=== PATIENT | female | born 1995 | race Caucasian/White ===

== ENCOUNTER 2023-02-19 12:23 | Emergency (ER) | payer OTHER, SELFPAY ==
--- NOTE | ~2023-02-19 | XR_ITS ---
EXAMINATION: XR chest 2V DATE: 02/19/2023 13:15 INDICATION: Cough and congestion. TECHNIQUE: Frontal and lateral views of the chest were obtained. COMPARISON: None. FINDINGS: The chest demonstrates clear lungs without pneumonia, pleural effusion, or pneumothorax. Th e heart size is normal. IMPRESSION: 1. No acute cardiopulmonary disease. Reviewed, dictated and finalized at location A.
[2023-02-19 12:41] VITALS: BP 130/90; PULSE 79; RESP 18; TEMP 36.2; O2SAT 100
--- NOTE | 2023-02-19 13:08 | ED.URI ---
HPI - URI/Sore Throat General Chief Complaint: Upper Respiratory Infection Stated Complaint: cough,congestion,back pain when breathing Time Seen by Provider: 02/19/23 12:26 Source: patient Mode of arrival: ambulatory Limitations: no limitations History of Present Illness HPI Narrative: 27-year-old female presents to [facility] with complaints of cold-like symptoms of cough, congestion, runny nose, body aches and chills. Patient reports that this morning she started with low-grade fevers up to 99 and also noted pain to her back with inspiration and coughing. Patient reports history of bronchitis and pneumonia as a child. Patient is a nonsmoker. Patient reports that her children were recently ill with cold-like symptoms. Patient denies recent travel. Patient denies nausea, vomiting, diarrhea, shortness of breath or wheezing. Patient has been taking [id number] ibuprofen, Excedrin as well as completing stretching exercises to her back with minimal relief MD elicited complaint: cough, rhinorrhea and nasal congestion Onset (ago): day(s) (4) Able to tolerate fluids by mouth: Yes Relieving factors: nothing Context: sick contacts Associated symptoms: fever and chills Treatments prior to arrival: ibuprofen Related Data Allergies Allergy/AdvReac Type Severity Reaction Status Date / Time No Known Allergies Allergy Verified 02/19/23 12:42 Review of Systems Constitutional: Constitutional: Reports chills, Denies fatigue, Reports fever(s) and Denies weakness ENT: Denies vertigo, Denies dizziness, Denies epistaxis, Reports nasal congestion and Denies sore throat Comments: Rhinorrhea Cardiovascular: Cardiovascular: Denies chest pain Respiratory: Respiratory: Denies chest congestion, Reports cough, Denies dyspnea and Denies wheezing Comments: Pain in back with coughing Gastrointestinal: Gastrointestinal: Denies diarrhea, Denies nausea and Denies vomiting Integumentary/Breasts: Skin/Breast: Denies rash Neurologic: Denies dizziness, Denies syncope and Denies headache(s) PMFSH Social History Social History (Updated 02/19/23 @ 13:12 by Silke Smith APRN) Smoking status: Never smoker Comments At time of signature, I agree with nursing past medical, surgical, social and family history. There is no relevant family history pertinent to the presenting complaint. Exam Const: General: healthy appearing and no acute distress Nutritional Appearance: well nourished Orientation/consciousness: patient oriented x3 Limitations: no limitations HENMT: Head: normal to inspection Ears: external ears normal, TM's normal bilaterally and EAC's normal Face/Nose/Sinus: Normal external nose present and Nasal discharge present clear bilateral Mouth: Yes Normal oral and palatal mucosa present and Yes moist mucous membranes Teeth and gingiva: dentition normal Throat: posterior oropharynx normal and uvula midline Other: Moderate nasal congestion noted, right is worse than left Eyes: Conjunctivae: conjunctivae normal Neck: Neck: normal visual inspection Resp: Effort & Inspection: normal respiratory effort and not labored Auscultation: clear to auscultation bilaterally, no crackles, no rales, no rhonchi and no wheezes Cardio: Rate: regular rate Rhythm: regular rhythm Heart sounds: no murmurs Skin: General skin exam: normal color Neuro: General: patient oriented x3 Psych: Affect: normal affect Attitude: cooperative Course Course Level of Care: Express Care Visit Vital Signs Vital signs: Vital Signs Temperature 36.2 C L 02/19/23 12:41 Pulse Rate 79 02/19/23 12:41 Respiratory Rate 18 02/19/23 12:41 Blood Pressure 130/90 02/19/23 12:41 Pulse Oximetry 100 02/19/23 12:41 Oxygen Delivery Room Air 02/19/23 12:41 Temperature 36.2 C L 02/19/23 12:41 Pulse Rate 79 02/19/23 12:41 Respiratory Rate 18 02/19/23 12:41 Blood Pressure 130/90 02/19/23 12:41 Pulse Oximetry 100 06/0
== END 2023-02-19 13:28 | disposition home or self-care (01) ==
PROVIDERS: Emergency Provider Nurse Practitioner Family
DX: J06.9 Acute upper respiratory infection, unspecified (principal); Z20.822 Contact with and (suspected) exposure to COVID-19
CPT/HCPCS: 71046; 87426; 87804; 99203; C9803; G0463

== ENCOUNTER 2023-03-25 09:49 | Emergency (ER) | payer OTHER, SELFPAY ==
--- NOTE | 2023-03-25 09:52 | ED.GENADULT ---
HPI - General Adult General Chief complaint: Ear Stated complaint: rt ear pain Time Seen by Provider: 03/25/23 09:52 Source: patient Mode of arrival: ambulatory Limitations: no limitations History of Present Illness HPI narrative: 28-year-old female patient presents to the [facility] with complaints of right ear pain for the past 5 days. Patient states symptoms started off as a cold/ virus. Patient states most of her symptoms have been resolved but continues to have slight ear pain that comes and goes and is triggering her migraines. Patient states she has taken some ibuprofen for the pain but denies being on any type of antihistamine or using the nasal spray. Denies any fevers, body aches or chills. Denies any nausea, vomiting or diarrhea. Denies any discharge coming from the ear. Related Data Allergies Allergy/AdvReac Type Severity Reaction Status Date / Time No Known Allergies Allergy Verified 03/25/23 10:07 Review of Systems Review of Systems: CONSTITUTIONAL: Denies fever, chills, or sweats. EYES: Denies visual changes, redness, or discharge. ENT: Denies rhinorrhea, congestion, sore throat, or otalgia. CARDIOVASCULAR: Denies chest pain, palpitations, or edema. RESPIRATORY: Denies cough or dyspnea. GASTROINTESTINAL: Denies abdominal pain, nausea, vomiting, or diarrhea. GENITOURINARY: Denies dysuria or hematuria. SKIN: Denies rash or itching. MUSCULOSKELETAL: Denies back pain, joint pain, or myalgia. NEUROLOGIC: Denies headache, numbness, or weakness. PSYCHIATRIC: Denies anxiety or depression. PMFSH Social History Social History Smoking status: Never smoker Comments At the time of my signature I agree with nursing past medical history, surgical, social, and family history. There is no relevant family history pertinent to the presenting complaint. Exam Narrative: GENERAL: Well-appearing, well-nourished, and in no acute distress. HEAD: Normocephalic, atraumatic. EYES: PERRLA and EOMI. ENT: Nares clear, no rhinorrhea or epistaxis. Mucous membranes moist. The right tympanic membrane does appear to have some fluid behind there. There is no erythema no bulging no evidence of infection at this time. Posterior pharynx with no erythema, tonsillar enlargement, or exudates present NECK: Supple. No lymphadenopathy CHEST: Clear to auscultation. No respiratory distress. HEART: Regular rate and rhythm. No murmur heard. Normal peripheral pulses. ABDOMEN: Soft, nontender, nondistended, normal active bowel sounds. EXTREMITIES: Normal range of motion. No edema. SKIN: Warm, dry, no rash. NEURO: No focal deficits. Alert and oriented x3. Course Course Level of Care: Express Care Visit Vital Signs Vital signs: Vital Signs Temperature 36.7 C 03/25/23 10:06 Pulse Rate 72 03/25/23 10:06 Respiratory Rate 18 03/25/23 10:06 Blood Pressure 131/82 03/25/23 10:06 Pulse Oximetry 100 03/25/23 10:06 Oxygen Delivery Room Air 03/25/23 10:06 Temperature 36.7 C 03/25/23 10:06 Pulse Rate 72 03/25/23 10:06 Respiratory Rate 18 03/25/23 10:06 Blood Pressure 131/82 03/25/23 10:06 Pulse Oximetry 100 03/25/23 10:06 Oxygen Delivery Room Air 03/25/23 10:06 Vital signs reviewed. Medical Decision Making MDM Narrative Medical decision making narrative: discussed with patient does appear that she has got some fluid behind the eardrum that could be causing some of the intermittent pain. We will discharge her home with an antihistamine, nasal steroid and did give instructions on how to properly use the nasal steroid as well as an oral steroid to help dry up the fluted per hopefully prevent infection. Discussed with patient if the symptoms worsen she develops fever she will need to be reassessed for possible antibiotics. Patient verbalized understanding denies any other questions or concerns at this time. Differential Diagnosis Diff
[2023-03-25 10:06] VITALS: BP 131/82; PULSE 72; RESP 18; TEMP 36.7; O2SAT 100
== END 2023-03-25 10:32 | disposition home or self-care (01) ==
PROVIDERS: Emergency Provider Nurse Practitioner Family
DX: H65.01 Acute serous otitis media, right ear (principal)
CPT/HCPCS: 99213; G0463

== ENCOUNTER 2023-07-18 10:26 | Emergency (ER) | payer OTHER, SELFPAY ==
--- NOTE | 2023-07-18 11:02 | ED.URI ---
HPI - URI/Sore Throat General Chief Complaint: Upper Respiratory Infection Stated Complaint: sorethoart Time Seen by Provider: 07/18/23 11:03 Source: patient Mode of arrival: ambulatory Limitations: no limitations History of Present Illness HPI Narrative: Patient is a 28-year-old female who presents with sore throat. Patient reports symptoms started on Sunday and was seen in the emergency department on Sunday. Patient was diagnosed with strep throat and put on amoxicillin. Patient states symptoms improved slightly but now have worsening pain and throat swelling. Patient states she has had frequent strep throat in the past with resistance to amoxicillin. Patient is currently on day 4 of amoxicillin. Denies any fever, chills, nausea, vomiting, diarrhea. Related Data Home Medications Medication Instructions Recorded Confirmed amoxicillin 500 mg capsule mg 07/18/23 escitalopram oxalate 10 mg tablet mg 07/18/23 ondansetron 4 mg disintegrating mg 07/18/23 tablet prednisone 10 mg tablet mg 07/18/23 07/18/23 propranolol 40 mg tablet mg 07/18/23 sumatriptan succinate 50 mg tablet mg PO 07/18/23 trazodone 50 mg tablet mg 07/18/23 Allergies Allergy/AdvReac Type Severity Reaction Status Date / Time No Known Allergies Allergy Verified 03/25/23 10:07 Review of Systems Review of Systems: All systems reviewed & are unremarkable except as noted in HPI and below Constitutional: Constitutional: Denies body ache(s), Denies fever(s), Denies headache(s), Denies malaise and Denies weakness Eyes: Eyes: Denies loss of vision ENT: Denies otalgia, Denies headache(s), Denies nasal congestion, Denies sinus pain and Reports sore throat Cardiovascular: Cardiovascular: Denies chest pain, Denies irregular heart rhythm and Denies dyspnea Respiratory: Respiratory: Denies cough and Denies dyspnea Gastrointestinal: Gastrointestinal: Denies abdominal pain, Denies melena, Denies hematochezia, Denies diarrhea, Denies nausea and Denies vomiting Musculoskeletal: Musculoskeletal: Denies back pain, Denies myalgias and Denies arthralgias Integumentary/Breasts: Skin/Breast: Denies pruritus and Denies rash Neurologic: Denies headache(s), Denies loss of vision and Denies weakness Psychiatric: Psychiatric: Reports no additional psychiatric complaints PMFSH Social History Social History Smoking status: Never smoker Comments At time of signature, agree with nursing past medical, surgical, social and family history. There is no relevant family history pertinent to the presenting complaint. Exam Const: General: cooperative, healthy appearing, comfortable, no acute distress and well nourished Nutritional Appearance: well nourished Orientation/consciousness: patient oriented x3 Limitations: no limitations HENMT: Head: normal to inspection, normocephalic and atraumatic Ears: hearing grossly normal bilaterally, external ears normal, TM's normal bilaterally and EAC's normal Face/Nose/Sinus: Normal external nose present, Normal nares present, Normal nasal mucous membranes and turbinates present, Normal septum present, normal facial exam, sinuses nontender and face symmetric Face and sinus: normal facial exam, sinuses nontender and face symmetric Mouth: Yes Normal oral and palatal mucosa present, Yes lip normal and Yes moist mucous membranes Teeth and gingiva: dentition normal Throat: uvula midline, abnormal tonsil bilateral erythema, exudates and hypertrophy 3+, posterior oropharynx abnormal edema, erythema and exudates and postnasal drainage Eyes: General: appearance normal, both eyes and all related structures Alignment and Position: alignment normal and position normal Periorbital: periorbital findings normal Eyelids: eyelids normal Pupils: Equal, round and reactive pupils present Neck: Neck: normal visual inspection, full ROM, no lymphadenopathy and supple Chest: Chest palpatio
[2023-07-18 11:07] VITALS: BP 131/83; PULSE 85; RESP 18; TEMP 36.1; O2SAT 99
[2023-07-18 11:14] VITALS: BP 131/83; PULSE 85; RESP 18; TEMP 36.1; O2SAT 99
== END 2023-07-18 11:55 | disposition home or self-care (01) ==
PROVIDERS: Emergency Provider Nurse Practitioner Family
DX: J02.0 Streptococcal pharyngitis (principal)
CPT/HCPCS: 99213; G0463

== ENCOUNTER 2023-08-24 08:15 | Emergency (ER) | payer OTHER, SELFPAY ==
[2023-08-24 08:30] VITALS: BP 145/85; PULSE 76; RESP 16; TEMP 36.3; O2SAT 100
--- NOTE | 2023-08-24 08:53 | ED.URI ---
HPI - URI/Sore Throat General Chief Complaint: Upper Respiratory Infection Stated Complaint: Sore Throat Time Seen by Provider: 08/24/23 08:48 Source: patient and RN notes reviewed Mode of arrival: ambulatory Limitations: no limitations History of Present Illness HPI Narrative: Patient presents today with a 6 day history of sore throat, fatigue, nasal congestion. Denies fever, cough, rhinorrhea. Currently rates her pain 7/10 and has been taking ibuprofen with mild relief. Related Data Home Medications Medication Instructions Recorded Confirmed escitalopram oxalate 10 mg tablet mg 07/18/23 propranolol 40 mg tablet mg 07/18/23 sumatriptan succinate 50 mg tablet mg PO 07/18/23 trazodone 50 mg tablet mg 07/18/23 Allergies Allergy/AdvReac Type Severity Reaction Status Date / Time No Known Allergies Allergy Verified 08/24/23 08:29 Review of Systems Review of Systems: CONSTITUTIONAL: Denies body aches, fever, chills, or sweats.+ fatigue EYES: Denies visual changes, redness, or discharge. ENT: Denies rhinorrhea, otalgia.+ sore throat, congestion CARDIOVASCULAR: Denies chest pain, palpitations, or edema. RESPIRATORY: Denies cough or dyspnea. GASTROINTESTINAL: Denies abdominal pain, nausea, vomiting, or diarrhea. GENITOURINARY: Denies dysuria or hematuria. SKIN: Denies rash, itching, or wounds. MUSCULOSKELETAL: Denies back pain, joint pain, or myalgia. NEUROLOGIC: Denies headache, numbness, tingling, or weakness. PSYCH: Denies depression or anxiety. [facility] Social History Social History Smoking status: Never smoker Comments At time of signature, I have reviewed and agree with nursing past medical, surgical, social and family history unless otherwise noted. Please see nursing chart for further information. There is no relevant family history pertinent to the presenting complaint Exam Narrative: GENERAL: Well-appearing, well-nourished, and in no acute distress. HEAD: Normocephalic, atraumatic. EYES: EOMI. No redness or drainage. Conjunctivae normal. ENT: Mucous membranes pink and moist. Nares clear. No rhinorrhea. TMs normal bilaterally. Throat normal. Uvula midline. NECK: Normal AROM. Supple. No lymphadenopathy. CHEST: No respiratory distress. Clear to auscultation. HEART: Regular rate and rhythm. No murmur appreciated. EXTREMITIES: Normal range of motion. No edema. SKIN: Warm, dry, no rash. Capillary refill normal. Normal skin turgor. NEURO: No focal deficits. Alert and oriented x3. Gait steady. PSYCH: Normal affect. No signs of depression or anxiety. Course Course Level of Care: Express Care Visit Vital Signs Vital signs: Vital Signs Temperature 97.4 F L 08/24/23 08:30 Pulse Rate 76 08/24/23 08:30 Respiratory Rate 16 08/24/23 08:30 Blood Pressure 145/85 H 08/24/23 08:30 Pulse Oximetry 100 08/24/23 08:30 Oxygen Delivery Room Air 08/24/23 08:30 Temperature 97.4 F L 08/24/23 08:30 Pulse Rate 76 08/24/23 08:30 Respiratory Rate 16 08/24/23 08:30 Blood Pressure 145/85 H 08/24/23 08:30 Pulse Oximetry 100 08/24/23 08:30 Oxygen Delivery Room Air 08/24/23 08:30 Reviewed MDM - URI/Sore Throat MDM Narrative Medical decision making narrative: Rapid strep negative. Culture pending. Symptoms likely viral in etiology. Discussed [id number] treatment. Anticipatory guidance given. Differential Diagnosis Differential diagnosis: Likely upper respiratory infection, otitis media, viral infection, pharyngitis and other (Strep throat) Lab Data Attestation: I reviewed the patient's lab results. Labs: Strep Screen Presumptive Negative *(Reference Range: Negative)* Critical Care Time Critical Care Time Critical Care Time: No Discharge Plan Discharge Clinical Impression: Upper respiratory infection Qualifiers: URI ty
== END 2023-08-24 09:05 | disposition home or self-care (01) ==
PROVIDERS: Emergency Provider Nurse Practitioner
DX: J06.9 Acute upper respiratory infection, unspecified (principal)
CPT/HCPCS: 87081; 87880; 99213; G0463

== ENCOUNTER 2023-09-02 09:31 | Emergency (ER) | payer OTHER, SELFPAY ==
[2023-09-02 10:16] VITALS: BP 127/90; PULSE 77; RESP 18; TEMP 35.9; O2SAT 98
--- NOTE | 2023-09-02 10:59 | ED.URI ---
HPI - URI/Sore Throat General Chief Complaint: Upper Respiratory Infection Stated Complaint: Sore Throat/Chills Source: patient Mode of arrival: ambulatory Limitations: no limitations History of Present Illness HPI Narrative: 28-year-old female presents to [facility] with complaints of chills, fatigue, sinus pressure, sore throat, nasal congestion, bilateral ear pressure, right is worse than left for the past 7-10 days. Patient reports her symptoms became worse a few days ago. 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 Patient takes Zyrtec and Flonase daily. Patient has been taking [id number] DayQuil and Motrin with little relief. Patient denies recent travel. Patient is nonsmoker. Patient reports that she completed a negative COVID test yesterday. MD elicited complaint: rhinorrhea, nasal congestion and sinus pain Onset (ago): day(s) (-) Able to tolerate fluids by mouth: Yes Treatments prior to arrival: acetaminophen, ibuprofen and cold medicine Related Data Home Medications Medication Instructions Recorded Confirmed escitalopram oxalate 10 mg tablet 10 mg PO DAILY 07/18/23 09/02/23 propranolol 40 mg tablet 40 mg PO DAILY 07/18/23 09/02/23 sumatriptan succinate 50 mg tablet 50 mg PO DAILY 07/18/23 09/02/23 trazodone 50 mg tablet 50 mg PO HS 07/18/23 09/02/23 Allergies Allergy/AdvReac Type Severity Reaction Status Date / Time No Known Allergies Allergy Verified 09/02/23 10:33 Review of Systems Constitutional: Constitutional: Reports chills, Reports fatigue, Denies fever(s) and Denies weakness ENT: Denies dizziness, Denies epistaxis, Reports nasal congestion and Denies sore throat Cardiovascular: Cardiovascular: Denies chest pain Respiratory: Respiratory: Reports cough, Denies dyspnea and Denies wheezing Gastrointestinal: Gastrointestinal: Denies abdominal pain, Denies diarrhea, Denies nausea and Denies vomiting Musculoskeletal: Musculoskeletal: Denies arthralgias and Denies joint swelling Integumentary/Breasts: Skin/Breast: Denies rash Neurologic: Denies dizziness, Denies syncope and Denies headache(s) [facility] Social History Social History Smoking status: Never smoker Comments At time of signature, I agree with nursing past medical, surgical, social and family history. There is no relevant family history pertinent to the presenting complaint. Exam Const: General: healthy appearing and no acute distress Nutritional Appearance: well nourished Orientation/consciousness: patient oriented x3 Limitations: no limitations HENMT: Head: normal to inspection Ears: external ears normal, TM's normal bilaterally and EAC's normal Face/Nose/Sinus: Normal external nose present Face and sinus: sinus tenderness frontal Mouth: Yes Normal oral and palatal mucosa present and Yes moist mucous membranes Throat: posterior oropharynx normal and uvula midline Other: Moderate bilateral nasal congestion no Eyes: Conjunctivae: conjunctivae normal Resp: Effort & Inspection: normal respiratory effort and not labored Auscultation: clear to auscultation bilaterally, no crackles, no rales, no rhonchi and no wheezes Cardio: Rate: regular rate Rhythm: regular rhythm Heart sounds: no murmurs Skin: General skin exam: normal color Rashes: no rashes Psych: Affect: normal affect Attitude: cooperative Course Course Level of Care: Express Care Visit Vital Signs Vital signs: Vital Signs Temperature 35.9 C L 09/02/23 10:16 Pulse Rate 77 09/02/23 10:16 Respiratory Rate 18 09/02/23 10:16 Blood Pressure 127/90 09/02/23 10:16 Pulse Oximetry 98 09/02/23 10:16 Oxygen Delivery Room Air 09/02/23 10:16 Temperature 35.9 C L 09/02/23 10:16 Pulse Rate 77 09/02/23 10:16 Respiratory Rate 18 09/02/23 10:16 Blood Pressure 127/90 09/02/23 10:16 Pulse Oximetry 98 09/02/23 10:16 Oxygen Delivery Room Air 09/02/23
== END 2023-09-02 11:07 | disposition home or self-care (01) ==
PROVIDERS: Emergency Provider Nurse Practitioner Family
DX: J01.80 Other acute sinusitis (principal); F41.9 Anxiety disorder, unspecified; F32.A Depression, unspecified
CPT/HCPCS: 87081; 87804; 87880; 99213; G0463

== ENCOUNTER 2024-05-06 16:54 | Emergency (ER) | payer OTHER, SELFPAY ==
--- NOTE | 2024-05-06 17:00 | ED.URI ---
HPI - URI/Sore Throat General Chief Complaint: Upper Respiratory Infection Stated Complaint: cold/ Sinus infection Time Seen by Provider: 05/06/24 17:19 Source: patient and RN notes reviewed Mode of arrival: ambulatory Limitations: no limitations History of Present Illness HPI Narrative: 29-year-old female presents with concern for 2 week history of sinus congestion, sinus pain or pressure, sinus drainage. She reports she has taken antihistamines and Tylenol and ibuprofen without relief. She reports worsening symptoms the last 2 days. MD elicited complaint: nasal congestion and sinus pain Related Data Home Medications Medication Instructions Recorded Confirmed escitalopram oxalate 10 mg tablet 10 mg PO DAILY 07/18/23 09/02/23 propranolol 40 mg tablet 40 mg PO DAILY 07/18/23 09/02/23 sumatriptan succinate 50 mg tablet 50 mg PO DAILY 07/18/23 09/02/23 trazodone 50 mg tablet 50 mg PO HS 07/18/23 09/02/23 Allergies Allergy/AdvReac Type Severity Reaction Status Date / Time No Known Allergies Allergy Verified 09/02/23 10:33 Review of Systems Review of Systems: CONSTITUTIONAL: Denies malaise, chills, sweats, or fever. EYES: Denies visual changes, redness, or discharge. ENT: Reports rhinorrhea, congestion, sinus pain CARDIOVASCULAR: Denies chest pain, palpitations, or edema. RESPIRATORY: Denies cough. Denies dyspnea. GASTROINTESTINAL: Denies abdominal pain, nausea, vomiting, diarrhea SKIN: Denies rash or itching. MUSCULOSKELETAL: Denies myalgia. NEUROLOGIC: Denies headache. All systems reviewed & are unremarkable except as noted in HPI and below PMFSH Social History Social History Smoking status: Never smoker Comments At time of signature, agree with nursing past medical, surgical, social and family history. There is no relevant family history pertinent to the presenting complaint Exam Narrative: GENERAL: Well-appearing, well-nourished, and in no acute distress. HEAD: Normocephalic EYES: PERRLA, conjunctivae clear ENT: Nares clear, turbinates edematous and erythematous. Mucous membranes moist. TM pearly jovel with dull light reflex bilaterally; no tragal tenderness. Oropharynx not erythematous without lesions. Tonsils not enlarged and without exudate, no drooling, no hoarseness, no trismus, uvula midline. NECK: Supple. No lymphadenopathy CHEST: Clear to auscultation, breath sounds equal. No wheezing, rhonchi, rales, or stridor. No respiratory distress, speaks in full sentences. HEART: Regular rate and rhythm. No murmur heard. SKIN: Warm, dry, no rash. NEURO: Alert and oriented x3. PSYCH: Normal mood and affect Course Course Emergency Course: Patient is aware of diagnosis, understands and agrees to treatment plan. Anticipatory guidance given. Patient agrees to follow-up as directed and is aware of reasons to seek care at the emergency department. Portions of this record may have been created with voice recognition software Level of Care: Express Care Visit Vital Signs Vital signs: Reviewed. MDM - URI/Sore Throat MDM Narrative Medical decision making narrative: Differential diagnosis considered: Castellanos virus, strep pharyngitis, allergic rhinitis, upper respiratory tract infection, sinusitis, rhinosinusitis, nasopharyngitis. viral pharyngitis, otitis media, otitis externa, pneumonia, bronchitis, viral cough syndrome, viral syndrome, and influenza. Exam findings show no acute concerns or changes; patient is non-toxic appearing and is in no distress. Patient is appropriate for outpatient treatment and follow-up. Lab Data Attestation: I reviewed the patient's lab results. Critical Care Time Critical Care Time Critical Care Time: No Discharge Plan Discharge Clinical Impression: Acute bacterial sinusitis Patient Disposition: Home, Self-Care Condition: Stable Instructions: Antibiotic Form, Sinusitis (ED) Additional Instructions: T
[2024-05-06 17:10] VITALS: BP 125/71; PULSE 77; RESP 18; TEMP 36.2; O2SAT 99
== END 2024-05-06 17:30 | disposition home or self-care (01) ==
PROVIDERS: Emergency Provider Nurse Practitioner
DX: J01.90 Acute sinusitis, unspecified (principal); F41.9 Anxiety disorder, unspecified; F32.A Depression, unspecified
CPT/HCPCS: 99213; G0463

== ENCOUNTER 2024-06-04 11:36 | Emergency (ER) | payer OTHER, SELFPAY ==
[2024-06-04 11:38] VITALS: BP 139/83; PULSE 83; RESP 19; TEMP 36.6; O2SAT 99
[2024-06-04 12:15] LABS: EDSTREPNEGPOS1 Negative (Negative)
--- NOTE | 2024-06-04 12:45 | ED.GENADULT ---
HPI - General Adult General Chief complaint: Upper Respiratory Infection Stated complaint: Sore Throat Source: patient Mode of arrival: ambulatory Limitations: no limitations History of Present Illness HPI narrative: Patient presents for evaluation of sore throat for past few days. She has associated fatigue, mild right sided otalgia and chills. No fever, nausea, vomiting, diarrhea, cough or SOB. She has been taking tylenol and ibuprofen for her symptoms. She does not smoke. She has had mono in the past but cannot remember if her symptoms in the past with mono are similar to current symptoms. Several family members have had similar symptoms. Related Data Home Medications Medication Instructions Recorded Confirmed escitalopram oxalate 10 mg tablet 10 mg PO DAILY 07/18/23 06/04/24 sumatriptan succinate 50 mg tablet 50 mg PO DAILY 07/18/23 06/04/24 propranolol 40 mg tablet 40 mg PO DAILY 05/06/24 06/04/24 rimegepant 75 mg disintegrating 75 mg PO PRN PRN migraines 05/06/24 06/04/24 tablet (Nurtec ODT) Allergies Allergy/AdvReac Type Severity Reaction Status Date / Time No Known Allergies Allergy Verified 06/04/24 11:41 Review of Systems Review of Systems: CONSTITUTIONAL: Reports fatigue and chills. Denies fever and chills EYES: Denies visual changes, redness, or discharge. ENT: Reports sore throat and right sided otalgia. Denies rhinorrhea and congestion CARDIOVASCULAR: Denies chest pain, palpitations, or edema. RESPIRATORY: Denies cough or dyspnea. GASTROINTESTINAL: Denies abdominal pain, nausea, vomiting, or diarrhea. GENITOURINARY: Denies dysuria or hematuria. SKIN: Denies rash or itching. MUSCULOSKELETAL: Denies back pain, joint pain, or myalgia. NEUROLOGIC: Denies headache, numbness, dizziness, or weakness. PSYCHIATRIC: Denies anxiety or depression. [facility] Past Medical History Medical History Anxiety Surgical History Surgical History No pertinent past surgical history Family History Family History Mother Family history non-contributory Social History Social History (Reviewed 06/04/24 @ 12:49 by Hill Cornejo, [facility], ) Smoking status: Never smoker Living arrangements: with family Gender identity (if verbalized by the patient): Female Exam Narrative: GENERAL: Well-appearing, well-nourished, and in no acute distress. HEAD: Normocephalic, atraumatic. EYES: PERRLA and EOMI. ENT: Nares clear, no rhinorrhea or epistaxis. Mucous membranes moist. bilateral tonsillar swelling without exudate. Uvula is midline. Mild erythema in posterior pharynx. Bilateral TMs pearly jovel nonbulging NECK: Supple. No adenopathy or masses. No carotid bruits or JVD CHEST: Clear to auscultation. No respiratory distress. No wheezes rales or rhonchi HEART: Regular rate and rhythm. No murmur heard. Normal peripheral pulses. ABDOMEN: Soft, nontender, nondistended, normal active bowel sounds. EXTREMITIES: Normal range of motion. No edema. SKIN: Warm, dry, no rash. NEURO: No focal deficits. Alert and oriented x3. PSYCH: Normal mood and affect. Course Course Emergency Course: This is a 29-year-old female who presented for evaluation of a sore throat. Strep and mono negative. Will send throat culture. Through shared decision opted to hold off on abx while culture pending. Increase hydration. [id number] agents for symptom management. Follow up with primary provider. Go to the ER for worsening symptoms. Pt in agreement with plan of care Level of Care: Express Care Visit Vital Signs Vital signs: Vital Signs Temperature 36.6 C 06/04/24 11:38 Pulse Rate 83 06/04/24 11:38 Respiratory Rate 19 06/04/24 11:38 Blood Pressure 139/83 06/04/24 11:38 Pulse Oximetry 99 06/04/24 11:38 Oxygen Delivery Room
[2024-06-04 12:59] LABS: EDMONONEGPOS Negative (Negative)
== END 2024-06-04 13:10 | disposition home or self-care (01) ==
PROVIDERS: Emergency Provider Nurse Practitioner
DX: J02.9 Acute pharyngitis, unspecified (principal); F41.9 Anxiety disorder, unspecified
CPT/HCPCS: 36416; 86308; 87081; 87880; 99213; G0463

== ENCOUNTER 2024-07-09 08:18 | Emergency (ER) | payer OTHER, SELFPAY ==
[2024-07-09 08:47] VITALS: BP 120/76; PULSE 88; RESP 16; TEMP 36.6; O2SAT 99
[2024-07-09 08:48] LABS: EDUAAPPEAR Clear; EDUABILI Negative (Negative); EDUABLOOD 3+ (Negative); EDUACOLOR1 Yellow; EDUAGLUCOSE Negative (Negative); EDUAKETONE Negative (Negative); EDUALEUKO 1+ (Negative); EDUANITRATE Negative (Negative); EDUAPH 5.5; EDUAPROTEIN 1+ (Negative); EDUASPGRAVITY 1.025; EDUAUROBILI 0.2
--- NOTE | 2024-07-09 09:06 | ED.FEMALEGU ---
HPI - Female Genitourinary General Chief complaint: Urogenital-Female Stated complaint: urinary issue Time Seen by Provider: 07/09/24 08:55 Source: patient Mode of arrival: ambulatory Limitations: no limitations History of Present Illness HPI Narrative: 29-year-old female presents with complaint of urinary frequency, urgency, dysuria since yesterday. Afebrile. Denies nausea vomiting, body aches. All systems reviewed and negative except as noted above. Related Data Home Medications Medication Instructions Recorded Confirmed rimegepant 75 mg disintegrating 75 mg PO PRN PRN migraines 05/06/24 07/09/24 tablet ([facility]) escitalopram oxalate 20 mg tablet 20 mg PO DAILY 07/09/24 07/09/24 topiramate 25 mg tablet 25 mg PO BID 07/09/24 07/09/24 Allergies Allergy/AdvReac Type Severity Reaction Status Date / Time No Known Allergies Allergy Verified 07/09/24 08:48 Review of Systems Review of Systems: CONSTITUTIONAL: Denies fever, chills, or sweats. EYES: Denies visual changes, redness, or discharge. ENT: Denies rhinorrhea, congestion, sore throat, or otalgia. CARDIOVASCULAR: Denies chest pain, palpitations, or edema. RESPIRATORY: Denies cough or dyspnea. GASTROINTESTINAL: Denies abdominal pain, nausea, vomiting, or diarrhea. GENITOURINARY: Reports dysuria , urgency, frequency. Denies hematuria. SKIN: Denies rash or itching. MUSCULOSKELETAL: Denies back pain, joint pain, or myalgia. NEUROLOGIC: Denies headache, numbness, or weakness. PSYCHIATRIC: Denies anxiety or depression. All other systems reviewed are negative, except as documented in HPI. [facility] [place] Past Medical History Medical History Anxiety Surgical History Surgical History No pertinent past surgical history Family History Family History Mother Family history non-contributory Social History Social History Smoking status: Never smoker Living arrangements: with family Gender identity (if verbalized by the patient): Female Comments At time of signature, agree with nursing past medical, surgical, social and family history. There is no relevant family history pertinent to the presenting complaint. Exam Narrative: GENERAL: This is a well-nourished, well-developed patient, in no apparent distress. HEAD: normocephalic, atraumatic. EYES: PERRL. Sclera clear/white. Vision is grossly intact. EARS: External ears normal NOSE: External nose normal NECK: Neck supple, non-tender without lymphadenopathy, masses or thyromegaly. CARDIOVASCULAR: Regular rate and rhythm without murmurs, gallops, or rubs. RESPIRATORY: Clear to auscultation. Breath sounds equal bilaterally. No wheezes, rales, or rhonchi. SKIN: warm, Dry, intact with no suspicious lesions or rash, good texture and turgor. NEURO: awake, alert, and oriented to person, place and time. There were no obvious focal neurologic abnormalities. EXTREMITIES: No joint tenderness, effusion, or edema noted. Course Course Level of Care: Express Care Visit Vital Signs Vital signs: Vital Signs Temperature 36.6 C 07/09/24 08:47 Pulse Rate 88 07/09/24 08:47 Respiratory Rate 16 07/09/24 08:47 Blood Pressure 120/76 07/09/24 08:47 Pulse Oximetry 99 07/09/24 08:47 Oxygen Delivery Room Air 07/09/24 08:47 Temperature 36.6 C 07/09/24 08:47 Pulse Rate 88 07/09/24 08:47 Respiratory Rate 16 07/09/24 08:47 Blood Pressure 120/76 07/09/24 08:47 Pulse Oximetry 99 07/09/24 08:47 Oxygen Delivery Room Air 07/09/24 08:47 reviewed MDM - Female Genitourinary MDM Narrative Medical decision making narrative: Patient is aware of diagnosis, understands and agrees to treatment plan. Anticipatory guidance given. Marissa
== END 2024-07-09 09:07 | disposition home or self-care (01) ==
PROVIDERS: Emergency Provider Nurse Practitioner Family
DX: N39.0 Urinary tract infection, site not specified (principal); Z79.899 Other long term (current) drug therapy
CPT/HCPCS: 81003; 87077; 87086; 87186; 99213; G0463

== ENCOUNTER 2024-09-03 16:27 | Emergency (ER) | payer OTHER, SELFPAY ==
--- NOTE | 2024-09-03 16:42 | ED.URI ---
HPI - URI/Sore Throat General Chief Complaint: Upper Respiratory Infection Stated Complaint: sore throat,fatigue fle/strep exp Time Seen by Provider: 09/03/24 16:42 Source: patient Mode of arrival: ambulatory Limitations: no limitations History of Present Illness HPI Narrative: 29 yo F presents with c/o congestion, sore throat, mild cough for 2 days. AFebrile. Pt's son currently on abx for strep throat. well appearing. no other complaints today. all systems reviewed and negative except as noted above. Related Data Home Medications ?Medication ?Instructions ?Recorded ?Confirmed ?Last Taken ?Type rimegepant 75 mg disintegrating 75 mg PO PRN PRN migraines 05/06/24 07/09/24 Unknown History tablet (Nurtec ODT) escitalopram oxalate 20 mg tablet 20 mg PO DAILY 07/09/24 07/09/24 Unknown History topiramate 25 mg tablet 25 mg PO BID 07/09/24 07/09/24 Unknown History Allergies Allergy/AdvReac Type Severity Reaction Status Date / Time No Known Allergies Allergy Verified 09/03/24 16:43 Review of Systems Review of Systems: CONSTITUTIONAL: Denies fever, chills, or sweats. EYES: Denies visual changes, redness, or discharge. ENT: Reports rhinorrhea, congestion, sore throat. Denies otalgia. CARDIOVASCULAR: Denies chest pain, palpitations, or edema. RESPIRATORY: reports cough. Denies dyspnea. GASTROINTESTINAL: Denies abdominal pain, nausea, vomiting, or diarrhea. GENITOURINARY: Denies dysuria or hematuria. SKIN: Denies rash or itching. MUSCULOSKELETAL: Denies back pain, joint pain, or myalgia. NEUROLOGIC: Denies headache, numbness, or weakness. PSYCHIATRIC: Denies anxiety or depression. All other systems reviewed are negative, except as documented in HPI. [facility] Past Medical History Medical History Anxiety Surgical History Surgical History No pertinent past surgical history Family History Family History Mother Family history non-contributory Social History Social History Smoking status: Never smoker Living arrangements: with family Gender identity (if verbalized by the patient): Female Comments At time of signature, agree with nursing past medical, surgical, social and family history. There is no relevant family history pertinent to the presenting complaint. Exam Narrative: GENERAL: This is a well-nourished, well-developed patient, in no apparent distress. HEAD: normocephalic, atraumatic. EYES: PERRL. Sclera clear/white. Vision is grossly intact. EARS: External ears normal, auditory canals clear and without drainage, TMs normal without perforation. Hearing grossly intact. NOSE: External nose normal with no obvious nasal discharge, nares without redness, no rhinorrhea. THROAT: Mucous membranes moist, posterior pharynx clear. NECK: Neck supple, non-tender without lymphadenopathy, masses or thyromegaly. CARDIOVASCULAR: Regular rate and rhythm without murmurs, gallops, or rubs. RESPIRATORY: Clear to auscultation. Breath sounds equal bilaterally. No wheezes, rales, or rhonchi. SKIN: warm, Dry, intact with no suspicious lesions or rash, good texture and turgor. NEURO: awake, alert, and oriented to person, place and time. There were no obvious focal neurologic abnormalities. EXTREMITIES: No joint tenderness, effusion, or edema noted. Course Course Level of Care: Express Care Visit Vital Signs Vital signs: Vital Signs Temperature 36.7 C 09/03/24 16:51 Pulse Rate 94 09/03/24 16:51 Respiratory Rate 16 09/03/24 16:51 Blood Pressure 145/81 H 09/03/24 16:51 Pulse Oximetry 99 09/03/24 16:51 Oxygen Delivery Room Air 09/03/24 16:51 Temperature 36.7 C 09/03/24 16:51 Pulse Rate 94 09/03/24 16:51 Respiratory Rate 16 09/03/24 16:51 Blood Pressure 145/81 H 09/03/24 16:51 Pulse Oximetry 99 09/03/24 16:51 Oxygen Delivery Room Air 09/03/24 16:51 reviewed MDM - URI/Sore Throat MDM Narrative Medical decision making narrative: strep test negative. Strep culture ordered. Patient is well-appearing. Will wait for strep culture prior to treating with antibiotics. Patient is aware of diagnosis, understands and agrees to treatment plan. Anticipatory guidance given. Patient agrees to follow-up as directed and is aware of reasons to seek care at the emergency department. Portions of this record may have been created with voice recognition software Discharge Plan Discharge Clinical Impression: Acute viral pharyngitis Patient Disposition: Home, Self-Care Condition: Stable Instructions: Pharyngitis (ED) Additional Instructions: your strep and influenza test were negative today. A strep culture was ordered and results will take 24-48 hours. If her strep culture is positive we will call you at that time and prescribed an antibiotic. Take ibuprofen or Tylenol every 6-8 hours as needed for pain and fever. Drink plenty water and rest. Follow-up with your primary care physician if symptoms are not improving. Patient Language: Turkish Prescriptions: No Action Nurtec ODT 75 mg tablet,disintegrating 75 mg PO PRN PRN (Reason: migraines) topiramate 25 mg tablet 25 mg PO BID escitalopram oxalate 20 mg tablet 20 mg PO DAILY Follow-up/Referrals: PHYSICIAN NOT ON STAFF,NONSTAFF [Primary Care Provider] - Time of Disposition: 17:09
[2024-09-03 16:51] VITALS: BP 145/81; PULSE 94; RESP 16; TEMP 36.7; O2SAT 99
[2024-09-03 17:14] LABS: EDINFLUASCREEN Negative (Negative); EDINFLUBSCREEN Negative (Negative); EDSTREPNEGPOS1 Negative (Negative)
== END 2024-09-03 17:27 | disposition home or self-care (01) ==
PROVIDERS: Emergency Provider Nurse Practitioner Family
DX: J02.8 Acute pharyngitis due to other specified organisms (principal); F41.9 Anxiety disorder, unspecified
CPT/HCPCS: 87081; 87804; 87880; 99213; G0463

== ENCOUNTER 2025-09-01 09:02 | Emergency (ER) | payer OTHER, SELFPAY ==
--- NOTE | 2025-09-01 09:06 | ED_ITS ---
HPI - Female Genitourinary General Chief complaint: Urogenital-Female Stated complaint: UTI Source: patient and RN notes reviewed Mode of arrival: ambulatory Limitations: no limitations History of Present Illness HPI Narrative: Patient is a 30-year-old female who presents to the [facility] with complaints of dysuria, urinary frequency, and urinary urgency. She states that she started having urinary frequency last night. When she woke up this morning she started having dysuria and urgency. She denies flank pain or hematuria. Denies recent fevers. Patient states that she took azo for her symptoms prior to arrival. States that her symptoms are similar to that she has experienced in past with UTIs. Related Data Home Medications ?Medication ?Instructions ?Recorded ?Confirmed ?Last Taken ?Type rimegepant 75 mg disintegrating 75 mg PO PRN PRN migra radha 05/06/24 07/09/24 Unknown History tablet (Nurtec ODT) escitalopram oxalate 20 mg tablet 20 mg PO DAILY 07/0907/09/24 Unknown History topiramate 25 mg tablet 25 mg PO BID 07/09/24 Unknown History Allergies Allergy/AdvReac Type Severity Reaction Status Date / Time No Known Allergies Allergy Verified 09/01/25 09:15 Review of Systems Review of Systems: CONSTITUTIONAL: Denies fever, chills, or sweats. EYES: Denies visual changes, redness, or discharge. ENT: Denies otalgia and sore throat CARDIOVASCULAR: Denies chest pain, palpitations, or edema. RESPIRATORY: Denies cough or dyspnea. GASTROINTESTINAL: Denies abdominal pain, nausea, vomiting, or diarrhea. GENITOURINARY: Reports dysuria, urinary frequency, urinary urgency. SKIN: Denies rash or itching. MUSCULOSKELETAL: Denies back pain, joint pain, or myalgia. NEUROLOGIC: Denies headache, numbness, or weakness. Pertinent positives per HPI. [facility] Past Medical History Medical History Anxiety Surgical History Surgical History No pertinent past surgical history Family History Family History Mother Family history non-contributory Social History Social History Smoking status: Never smoker Living arrangements: with family Gender identity (if verbalized by the patient): Female Comments At the time of my signature, I reviewed and agree with the nursing past medical, surgical, social, and family history. There is no relevant family history pertinent to the patient complaint. Exam Narrative: GENERAL: This is a well-nourished, well-developed patient, in no apparent distress. HEAD: normocephalic, atraumatic. EYES: Sclera clear/white. Vision is grossly intact. EARS: External ears normal. Hearing grossly intact. NOSE: External nose normal with no obvious nasal discharge, nares without r edness, no rhinorrhea. THROAT: Mucous membranes moist. NECK: Neck supple, non-tender without lymphadenopathy, masses or thyromegaly. CARDIOVASCULAR: Regular rate and rhythm without murmurs, gallops, or rubs. RESPIRATORY: Clear to auscultation. Breath sounds equal bilaterally. No wheezes, rales, or rhonchi. GASTROINTESTINAL: Abdomen soft, non-tender, nondistended. Bowel sounds are active. No hepato-splenomegaly, or palpable masses. No guarding. SKIN: warm, intact with no suspicious lesions or rash, good texture and turgor. NEURO: awake, alert, and oriented to person, place and time. There were no obvious focal neurologic abnormalities. EXTREMITIES: No clubbing, cyanosis, or edema. No joint tenderness, effusion, or edema noted. BACK: Nontender without deformity or crepitance. No flank tenderness. Course Course Level of Care: Express Care Visit Vital Signs Vital signs: Vital Signs Temperature 97.6 F 09/01/25 09:13 Pulse Rate 93 09/01/25 09:13 Respiratory Rate 18 09/01/25 09:13 Blood Pressure 134/86 09/01/25 09:13 Pulse Oximetry 98 09/01/25 09:13 Oxygen Delivery Room Air 09/01/25 09:13 Temperature 97.6 F 09/01/25 09:13 Pulse Rate 93 09/01/25 09:13 Respiratory Rate 18 09/01/25 09:13 Blood Pressure 134/86 09/01/25 09:13 Pulse Oximetry 98 09/01/25 09:13 Oxygen Delivery Room Air 09/01/25 09:13 Reviewed [facility] Narrative Medical decision making narrative: We will send a urine culture off to the lab; if the culture identifies an organism that the prescribed antibiotic will not treat, you will receive a phone call from an urgent care staff member and an appropriate antibiotic will be prescribed. -Your symptoms should begin to improve within a day of starting antibiotics. But you should finish all the antibiotic pills you get. Otherwise your infection might come back. -Also recommend: drink more fluid. It might help flush out germs, and it does no harm -Tylenol/ibuprofen as needed for pain -Follow-up with your primary care provider for urine recheck OR if your symptoms persist, change or worsen significantly before you can contact your personal physician then please, without delay, go to the emergency department for further evaluation. Differential Diagnosis Differential Diagnosis: cystitis, vaginitis, dysuria, vaginal yeast infection Lab Data [facility] Lab Attestation statement: I personally reviewed the patient's lab results. Critical Care Time Critical Care Time Critical Care Time: No Discharge Plan Discharge Clinical Impression: Urinary tract infection Qualifiers: Urinary tract infection type: acute cystitis Hematuria presence: without hematuria Qualified Code(s): N30.00 - Acute cystitis without hematuria Patient Disposition: Home Condition: Stable Instructions: Antibiotic Form, Urinary Tract Infection in Women (ED) Additional Instructions: We will send a urine culture off to the lab; if the culture identifies an organism that the prescribed antibiotic will not treat, you will receive a phone call from an urgent care staff member and an appropriate antibiotic will be prescribed. -Your symptoms should begin to improve within a day of starting antibiotics. But you should finish all the antibiotic pills you get. Otherwise your infection might come back. -Also recommend: drink more fluid. It might help flush out germs, and it does no harm -Tylenol/ibuprofen as needed for pain -Follow-up with your primary care provider for urine recheck OR if your symptoms persist, change or worsen significantly before you can contact your personal physician then please, without delay, go to the emergency department for further evaluation. Patient Language: Monegasque Prescriptions: New cephalexin 500 mg capsule 500 mg PO Q8H 7 Days Qty: 21 0RF No Action Nurtec ODT 75 mg tablet,disintegrating 75 mg PO PRN PRN (Reason: migraines) topiramate 25 mg tablet 25 mg PO BID escitalopram oxalate 20 mg tablet 20 mg PO DAILY Follow-up/Referrals: Rico,Diana Lang SPANISH INTERPRETER/TRANSLATOR-C [Primary Care Provider] Stand Alone Forms: Work/School Release IP Time of Disposition: 09:20
[2025-09-01 09:13] VITALS: BP 134/86; PULSE 93; RESP 18; TEMP 36.4; O2SAT 98
--- OUTSIDE RECORDS SUMMARY | 2025-09-01 09:54 | XMS_ITS | Encounter Summary ---
Author Organization [facility] Address [address] [place] [address] Care Team Providers Care Tapper Supervisor Name Role Phone Amina Black MD Primary Care Provider [phone] Amina Black MD Unavailable [phone] Kameron Oneal PREMISES TECHNICIAN-WEB WORKER Primary Care Provider + Kameron Oneal PREMISES TECHNICIAN-WEB WORKER Unavailable + Jovi Mckay MD Primary Care Provider + Kameron Oneal PREMISES TECHNICIAN-WEB WORKER Unavailable + Yajaira Woodruff PREMISES TECHNICIAN-WEB WORKER Unavailable + Kameron Oneal PREMISES TECHNICIAN-WEB WORKER Unavailable + Encounter Details Date Type Department Care Team (Late st Contact Info) Description 05/10/2022 Telephone [address] [place] [address] Amina Black MD [address] [id number] Social History Tobacco Use Types Packs/Day Years Used Date Smoking Tobacco: Never Smokeless Tobacco: Never Alcohol Use Standard Drinks/Week Comments No 0 (1 standard drink = 0.6 oz pur e alcohol) PHQ-2 Answer Date Recorded PHQ2 TOTAL SCORE 0 03/18/2022 Baker Depression Scale Answer Date Recorded Last EPDS Total Score Not on file 04/07/2021 The thought of harming myself has occurred to me . Never 04/07/2021 Comments No Sex and Gender Information Value Date Recorded Sex Assigned at Not on file Legal Sex Female 8:12 AM CDT Gender Identity Not on file Sexual Orientation Not on file documented as of this encounter Functional Status * Is person deaf or have serious hearing difficulty? Answer Date of Assessment Author No 02/24/2021 5:30 AM CDT Michele Montejo RN * Is person blind or have serious difficulty seeing? Answer Date of Assessment Author No 02/24/2021 5:30 AM CDT Michele Montejo RN * Does person have serious difficulty walking/climbing stairs? Answer Date of Assessment Author No 02/24/2021 5:30 AM CDT Michele Montejo RN * Does person have difficulty dressing/bathing? Answer Date of Assessment Author No 02/24/2021 5:30 AM CDT Michele Montejo RN * Does person have difficulty doing errands alone? Answer Date of Assessment Author No 02/24/2021 5:30 AM NAYT Michele Montejo RN documented as of this encounter Mental Status * Does person have difficulty concentrating/remembering/making decisions? Answer Entry Date Author No 02/24/2021 5:30 AM NAYT Michele Montejo RN documented in this encounter Miscellaneous Notes * Telephone Encounter - Tiffanie Ferrell RN - 05/11/2022 3:59 PM CDT Attempted to contact pt with no answer. Left message requesting call back. * Telephone Encounter - Augusta Mcmillan - 05/10/2022 4:13 PM CDT Pt Jacqueline wanted to re-est care with Dr. Black. Pt hasn't seen the Dr. Since 03/2018. Pt stated she was having migraines wanted to see why. Pt is wanting to get an appointment if possible .Pt requesting a callback [phone] documented in this encounter Plan of Treatment Not on file documented as of this encounter Visit Diagnoses Not on filedocumented in this encounter Additional Health Concerns Infection Onset Date Last Indicated Resolved Time COVID-19 Under Investigation 07/07/2022 07/07/2022 07/08/2022 1:17 AM CDT COVID-19 Under Investigation 07/15/2023 07/15/2023 07/15/2023 10:25 PM CDT COVID-19 Under Investigation 10/02/2023 10/02/2023 10/02/2023 9:07 AM SHIM PLUG CUTTER COVID-19 Confirmed 10/02/2023 10/02/2023 4:33 AM SHIM PLUG CUTTER documented as of this encounter Care Teams Tapper Supervisor Relationship Specialty Start Date End Date Amina Black MD [address] [facility] [address] [place] [address] PCP - General Family Medicine 08/26/16 06/10/23 Amina Black MD [address] [facility] [address] [place] [address] PCP - Attributed-[facility] 01/15/23 07/17/23 Kameron Oneal PREMISES TECHNICIAN-WEB WORKER [address] [address] PCP - General Nurse Practitioner Family 07/03/23 04/27/24 Kameron Oneal PREMISES TECHNICIAN-WEB WORKER [address] [address] PCP - Attributed-[facility] [facility] 07/18/23 01/03/24 Jovi Mckay MD [address] [phone] PCP - General Family Medicine 04/28/24 Kameron Oneal, PREMISES TECHNICIAN-WEB WORKER [address] [phone] PCP - Attributed-[facility] ST 07/18/24 Kameron Oneal, PREMISES TECHNICIAN-WEB WORKER [address] [id number] Nurse Practitioner Nurse Practitioner Family 04/28/24 Yajaira Woodruff, PREMISES TECHNICIAN-WEB WORKER [address] [id number] Nurse Practitioner Nurse Practitioner 08/22/24 documented as of this encounter
--- OUTSIDE RECORDS SUMMARY | 2025-09-01 09:54 | XMS_ITS | Clinical Summary ---
Author Organization [facility] Address [address] [place] [place] [address] Care Team Providers Care Sanitary Plumber Name Role Phone Jovi Mckay MD Primary Care Provider [phone] Kameron Oneal GAS REFRIGERATOR SERVICER-CELL SUPPORT OPERATOR Unavailable + Yajaira Woodruff GAS REFRIGERATOR SERVICER-CELL SUPPORT OPERATOR Unavailable [phone] Kameron Oneal GAS REFRIGERATOR SERVICER-CELL SUPPORT OPERATOR Unavailable + Source Comments [facility],non-owned Affiliates and Associated Physician Practices is amultiple site organization consisting of ambulatory clinics and hospital sitesin [place], [place], [place] and [place]. This disclosure is being madepursuant to the Care Everywhere program and may not contain all information available regarding this patient. Last updated 18.[facility] Allergies No known active allergies Medications * This document contains information received from the source organization and may not represent a complete record from that organization. * Be aware that medications may not be up to date on this document. Alwaysverify current medications with the patient. fluticasone propionate (FLONASE) 50 MCG/ACT nasal sprayIndications :Rhinosinusitis [place] 1 (one) spray to 2 (two) sprays into each nostril once daily 1 Each 2 Active loratadine (Claritin) 10 MG tablet Take 1 (one) tablet by mouth once daily Active traZODone (Desyrel) 50 MG tabletIndication s:Trouble in sleeping Take 1 (one) tablet by mouth at bedtime 90 tablet 1 5 Active FLUoxetine (PROzac) 20 MG capsuleIndicatio ns:Anxiety Take 1 (one) capsule by mouth once daily 90 capsule 4 5 Active rimegepant (Nurtec ODT) 75 MG tabletIndication s:Intractable migraine without aura and with status migrainosus Take 75 mg by mouth once daily as needed for migraine 27 tablet 1 5 Active hydrOXYzine HCl (Atarax) 25 MG tabletIndication s:Anxiety Take 1 (one) tablet by mouth 4 times daily as needed (anxiety) 60 tablet 1 5 Active ondansetron, disintegrating, (Zofran ODT) 4 MG tabletIndication s:Intractable migraine without aura and with status migrainosus Take 1 (one) tablet by mouth every 6 hours as needed for nausea/vomit ing Allow tablet to dissolve on the tongue 30 tablet 1 5 Active ubrogepant (Ubrelvy) 50 MG tabletIndication s:Intractable migraine without aura and with status migrainosus Take 1 (one) tablet by mouth daily as needed - may repeat one time for migraine Maximum daily dose: 200mg/24 hours 10 tablet 2 5 Active traZODone (Desyrel) 50 MG tabletIndication s:Trouble in sleeping Take 1 (one) tablet by mouth at bedtime 90 tablet 1 4 08/06/20 25 Discontinu ed(Reorder ) ondansetron, disintegrating, (Zofran ODT) 4 MG tabletIndication s:Intractable migraine without aura and with status migrainosus Take 1 (one) tablet by mouth every 6 hours as needed for Nausea/Vomit ing Allow tablet to dissolve on the tongue 20 tablet 2 4 08/06/20 25 Discontinu ed(Reorder ) rimegepant (Nurtec ODT) 75 MG tabletIndication s:Intractable migraine without aura and with status migrainosus Take 75 mg by mouth once daily as needed for Migraine 27 tablet 1 4 08/06/20 25 Discontinu ed(List Clean-Up) topiramate (Topamax) 25 MG tabletIndication s:Intractable migraine without aura and with status migrainosus Take 1 (one) tablet by mouth 2 times daily 60 tablet 2 4 08/06/20 25 Discontinu ed(List Clean-Up) escitalopram (Lexapro) 20 MG tabletIndication s:Anxiety and depression Take 1 (one) tablet by mouth once daily 90 tablet 4 08/06/20 25 Discontinu ed(List Clean-Up) amoxicillin-clav ulanate (Augmentin) 875-125 MG tabletIndication s:Acute non-recurrent frontal sinusitis Take 1 (one) tablet by mouth 2 times daily with morning and evening meal 20 tablet 4 08/06/20 25 Discontinu ed(Tx Complete) methylPREDNISolo ne (Medrol Dosepak) 4 MG tabletIndication s:Acute non-recurrent frontal sinusitis Take by mouth as directed Take as directed by mouth per package instructions . 21 tablet 4 08/06/20 25 Discontinu ed(Tx Complete) propranolol (Inderal) 40 MG tablet Take 1 (one) tablet by mouth once 4 08/06/20 25 Discontinu ed(List Clean-Up) Active Problems Problem Noted Date Diagnosed Date Acute serous otitis media 08/05/2025 Anxiety 08/05/2025 Screening for condition 09/06/2018 Overview (06/25/2023): 06/21/2023: PAP NILM --> 2025 Resolved Problems Problem Noted Date Diagnosed Date Resolved Date Acute bacterial sinusitis 08/05/2025 Pharyngitis 08/05/2025 08/19/2025 Supervision of other normal , antepartum 07/09/2020 04/07/2021 Supervision of normal first , antepartum 08/30/2018 04/03/2019 Burning with urination 04/27/201804/02 Encounters * This document contains information received from the source organization and may not represent a complete record from that organization. Date Type Department Care Team Description 08/12/2025 Orders Only [facility] - Family Medicine [address] [place] [address], [address] [place] [address] Diana Gómez APRN-CNP Intractable migraine without aura and with status migrainosus 08/12/2025 Telephone [facility] [address] [facility], [address] [address] Jovi Mckay MD Medication Prior Auth Request; Encounter Opened In Error 08/07/2025 Telephone [facility] [address] [facility], [address] [address] Jovi Mckay MD Medication Prior Auth Request 08/06/2025 10:15 AM DIRECTOR OF PHYSIOTHERAPY SERVICES Office Visit [facility] [address] [facility], [address] [address] Diana Gómez APRN-CNP Well adult exam (Primary Dx); Anxiety; Intractable migraine without aura and with status migrainosus; Trouble in sleeping; Menorrhagia with irregular cycle from Last 3 Months Immunizations Immunization Administration Dates Next Due Covid Moderna primary monova lent 12+ yr 0.5mL 04/09/2021,03/12/2021 FLU, HISTORIC VACCINE 07/16/2024 INFLUENZA (UNDER 36 MONTHS) 3 NAKUL 06/17/2016 INFLUENZA VACCINE 06/17/2025 INFLUENZA VACCINE, QUADR. (F LUZONE; FLULAVAL; FLUARIX; AFLURIA QUADRIVALENT; 6MO+), 0.5 ML (IIV4) 07/09/2020 TDAP (7yrs+) 12/09/2020,01/21/2019,03/17/2014 Family History Medical History Relation Name Comments Asthma Mother Hypertension Mother Relation Name Status Comments Brother 1 Alive Brother 2 Alive Father Alive Mother Alive Social History Tobacco Use Types Packs/Day Years Used Date Smoking Tobacco: Never Smokeless Tobacco: Never Tobacco Cessation:Counseling Given: Not Answered Alcohol Use Standard Drinks/Week Comments No 0 (1 standard drink = 0.6 oz pur e alcohol) AUDIT-C Answer Date Recorded Q1: How often do you have a drink containing alcohol? Never 03/28/2024 Q2: How many drinks containi ng alcohol do you have on a typical day when you are drinking? Patient does not drink Q3: How often do you have si x or more drinks on one occasion? Never 03/28/2024 PHQ-2 Answer Date Recorded Patient Health Questionnaire-2 Score 6 08/06/2025 [place] Depression Scale Answer Date Recorded Last EPDS Total Score Not on file 04/07/2021 The thought of harming myself has occurred to me . Never 04/07/2021 Comments No Sex and Gender Information Value Date Recorded Sex Assigned at Not on file Legal Sex Female 8:12 AM CDT Gender Identity Not on file Sexual Orientation Not on file Last Filed Vital Signs Vital Sign Reading Time Taken Comments Blood Pressure 136/78 08/06/2025 10:07 AM DIRECTOR OF PHYSIOTHERAPY SERVICES Pulse 99 08/06/2025 10:07 AM DIRECTOR OF PHYSIOTHERAPY SERVICES Temperature 36.3 C (97.3 F) 08/22/2024 9:26 AM DIRECTOR OF PHYSIOTHERAPY SERVICES Respiratory Rate 22 08/06/2025 10:07 AM DIRECTOR OF PHYSIOTHERAPY SERVICES Oxygen Saturation 100% 08/06/2025 10:07 AM DIRECTOR OF PHYSIOTHERAPY SERVICES Inhaled Oxygen Concentration - - Weight 109.8 kg (242 lb) 08/06/2025 10:07 AM DIRECTOR OF PHYSIOTHERAPY SERVICES Height 165.1 cm (5' 5) 08/06/2025 10:07 AM DIRECTOR OF PHYSIOTHERAPY SERVICES Body Mass Index 40.27 08/06/2025 10:07 AM DIRECTOR OF PHYSIOTHERAPY SERVICES Plan of Treatment Health Maintenance Due Date Last Done Comments HEPATITIS C SCREENING 02/25/2012 HEPATITIS B VACCINE (1 of 3 - 19+ 3-dose series) 2013 HPV VACCINE (1 - 3-dose SCDM series) 2021 COVID-19 VACCINE ( - season) 2025 04/09/2021, 03/12/2021 PAP SMEAR 06/21/2026 06/21/2023, 08/30/2018 DTAP/TDAP/TD VACCINES (4 - Td or Tdap) 12/09/2030 12/09/2020, 01/21/2019, 03/17/2014 ZOSTER VACCINE (1 of 2) 2044 HIV SCREENING Completed 08/16/2020, 09/03/2018 INFLUENZA VACCINE Completed 06/17/2025, , 07/09/2020, Additional history exists DEPRESSION SCREENING Completed 08/06/2025, 10/02/2023, 06/21/2023, Additional history exists HIB VACCINE Aged Out No longer eligi ble based on patient's age to complete this topic MENINGOCOCCAL (Group B) VACCINE SHARED DECISION-MAKING Aged Out No longer eligible based on patient's age to complete this topic MENINGOCOCCAL GROUPS A/C/Y/W VACCINE Aged Out No longer eligible based on patient's age to complete this topic PNEUMOCOCCAL VACCINE Aged Out No long er eligible based on patient's age to complete this topic Procedures Procedure Name Priority Date/Time Associated Diagnosis Comments PAP IG RFLX HPV HR ASCUS RFLX 16/18/45 Routine 06/21/2023 12:14 PM CDT Well woman exam with routine gynecological exam HIV-1 HIV-2 ANTIBODY + HIV P24 AG PANEL Routine 08/16/2020 9:16 AM DIRECTOR OF PHYSIOTHERAPY SERVICES Amenorrhea from Last 3 Months or Most Recently Relevant to Health Maintenance Results * PAP IG RFLX HPV HR ASCUS RFLX 16/18/45 (06/21/2023 12:14 PM CDT) Diagnosis [facility] ACCOUNT BILL Comment:NEGATIVE FOR INTRAEP ITHELIAL LESION OR MALIGNANCY. Specimen Adequacy [facility] ACCOUNT BILL Comment: Satisfactory for evaluation. Endocervical and/or squamous metaplastic cells (endocervical component) are present. Clinician Provided ICD10 [facility] ACCOUNT BILL Comment:Z01.419 Performed by [facility] ACCOUNT BILL Comment:Paulino Morillo totechnologist (ASCP) Comment . [facility] ACCOUNT BILL Note [facility] ACCOUNT BILL Comment: The Pap smear is a screening test designed to aid in the detection of premalignant and malignant conditions of the uterine cervix. It is not a diagnostic procedure and should not be used as the sole means of detecting cervical cancer. Both false-positive and false-negative reports do occur. . IGLBP CPT Code Automation [facility] ACCOUNT BILL Comment: This liquid based ThinPrep(R) pap test was screened with the use of an image guided system. Note [facility] ACCOUNT BILL Comment: The HPV DNA reflex criteria were not met with this specimen result therefore, no HPV testing was performed. . Pathology/Cytolog y ENTIRE ENDOCERVIX / Unknown 06/21/2023 12:14 PM CDT 06/21/2023 Narrative [facility] ACCOUNT BILL - 06/25/2023 2:07 PM CDT Source.............Cervix No. of containers..01 ThinPrep Vial Resulting Agency Comment Lab Testing performed at: [address] [place] [id number] Denise Beth MD LAB - PATHOLOGY/CY TOLOGY ORDERABLES Final Result Performing Organization Address City/[facility] Co de Phone Number [facility] ACCOUNT BILL [address] [place] [address] * HIV-1 HIV-2 ANTIBODY + HIV P24 AG PANEL (08/16/2020 9:16 AM DIRECTOR OF PHYSIOTHERAPY SERVICES) HIV Screen 4th Generation w Reflex Non Reactive Non Reactive [facility] ACCOUNT BILL Blood BLOOD SPECIMEN / Unknown 08/16/2020 9:16 AM DIRECTOR OF PHYSIOTHERAPY SERVICES 08/16/2020 Narrative Resulting Agency Comment Lab Testing performed at: [address] [id number] Denise Beth MD LAB - CHEMISTRY OR DERABLES Final Result Performing Organization Address [facility] de Phone Number [facility] ACCOUNT BILL [address] [place] [address] from Last 3 Months or Most Recently Relevant to Health Maintenance Insurance [employer] [facility] MEDICA [facility] MEDICA [facility] PAYOR GENERIC PAYOR GENERIC Advance Directives * Full Code (Latest Code Status on File) Date Activated Date Inactivated Comments 02/24/2021 5:33 AM 02/26/2021 4:46 PM * Full Code Date Activated Date Inactivated Comments 03/31/2019 4:11 PM 04/03/2019 2:47 PM Care Teams Sanitary Plumber Relationship Specialty Start Date End Date Jovi Mckay MD [address] [address] PCP - General Family Medicine 04/28/24 Kameron Oneal, GAS REFRIGERATOR SERVICER-CELL SUPPORT OPERATOR [address] [address] PCP - Attributed-[facility] 07/18/24 Kameron Oneal, GAS REFRIGERATOR SERVICER-CELL SUPPORT OPERATOR [address] [place] [address] Nurse Practitioner Nurse Practitioner [facility] 04/28/24 Yajaira Woodruff, GAS REFRIGERATOR SERVICER-CELL SUPPORT OPERATOR [address] [place] [address] Nurse Practitioner Nurse Practitioner 08/22/24
--- OUTSIDE RECORDS SUMMARY | 2025-09-01 09:54 | XMS_ITS | Encounter Summary ---
Author Organization [facility] Address [address] [facility] [place] [address] Care Team Providers Care Client Representative Name Role Phone Amina Black MD Primary Care Provider [phone] Amina Black MD Unavailable [phone] Kameron Oneal PARA OPERATOR-HIGH DENSITY PRESS OPERATOR Primary Care Provider + Kameron Oneal PARA OPERATOR-HIGH DENSITY PRESS OPERATOR Unavailable + Jovi Mckay MD Primary Care Provider + Kameron Oneal PARA OPERATOR-HIGH DENSITY PRESS OPERATOR Unavailable + Yajaira Woodruff PARA OPERATOR-HIGH DENSITY PRESS OPERATOR Unavailable + Kameron Oneal PARA OPERATOR-HIGH DENSITY PRESS OPERATOR Unavailable + Encounter Details Date Type Department Care Team (Late st Contact Info) Description 07/11/2018 [facility] Outpatient Visit [facility] Orthopedics - Radiology [address] [place] [address] [place] [address] Document, Scanned Social History Tobacco Use Types Packs/Day Years Used Date Smoking Tobacco: Never Smokeless Tobacco: Never Alcohol Use Standard Drinks/Week Comments No 0 (1 standard drink = 0.6 oz pur e alcohol) Comments No Sex and Gender Information Value Date Recorded Sex Assigned at Not on file Legal Sex Female 8:12 AM CDT Gender Identity Not on file Sexual Orientation Not on file documented as of this encounter Plan of Treatment Not on file documented as of this encounter Visit Diagnoses Not on filedocumented in this encounter Additional Health Concerns Infection Onset Date Last Indicated Resolved Time COVID-19 Under Investigation 08/06/2020 08/06/2020 08/08/2020 3:28 PM WINDOW GLASS CUTTER OFF COVID-19 Under Investigation 09/16/2021 09/16/2021 09/17/2021 1:04 AM WINDOW GLASS CUTTER OFF COVID-19 Under Investigation 03/12/2022 03/12/2022 03/13/2022 5:58 AM CDT COVID-19 Under Investigation 07/07/2022 07/07/2022 07/08/2022 1:17 AM CDT COVID-19 Under Investigation 07/15/2023 07/15/2023 07/15/2023 10:25 PM CDT COVID-19 Under Investigation 10/02/2023 10/02/2023 10/02/2023 9:07 AM WINDOW GLASS CUTTER OFF COVID-19 Confirmed 10/02/2023 10/02/2023 4:33 AM WINDOW GLASS CUTTER OFF documented as of this encounter Care Teams Client Representative Relationship Specialty Start Date End Date Amina Black MD [address] [address] PCP - General Family Medicine 08/26/16 06/10/23 Amina Black MD [address] [phone] PCP - Attributed-[facility] 01/15/23 07/17/23 Kameron Oneal APRN-HIGH DENSITY PRESS OPERATOR [address] [address] PCP - General Nurse Practitioner Family 07/03/23 04/27/24 Kameron Oneal APRN-HIGH DENSITY PRESS OPERATOR [address] [place] [address] PCP - Attributed-[facility] 07/18/23 01/03/24 Jovi Mckay MD [address] [address] PCP - General Family Medicine 04/28/24 Kameron Oneal, PARA OPERATOR-HIGH DENSITY PRESS OPERATOR [address] [address] PCP - Attributed-[facility] 07/18/24 Kameron Oneal, PARA OPERATOR-HIGH DENSITY PRESS OPERATOR [address] [address] Nurse Practitioner Nurse Practitioner Family 04/28/24 Yajaira Woodruff, PARA OPERATOR-HIGH DENSITY PRESS OPERATOR [address] [address] Nurse Practitioner Nurse Practitioner 08/22/24 documented as of this encounter
== END 2025-09-01 09:21 | disposition home or self-care (01) ==
PROVIDERS: Emergency Provider Nurse Practitioner; PCP Nurse Practitioner Family
DX: N30.00 Acute cystitis without hematuria (principal); F41.9 Anxiety disorder, unspecified
CPT/HCPCS: 87086; 99213; G0463